=== PATIENT | male | born 1935 | race Caucasian/White ===

== ENCOUNTER 2023-07-12 09:56 | Emergency (ER) | payer OTHER, SELFPAY ==
[2023-07-12 10:07] VITALS: BP 94/77; PULSE 87; RESP 18; TEMP 37.7; O2SAT 97
--- NOTE | 2023-07-12 11:04 | ED.URI ---
HPI - URI/Sore Throat General Chief Complaint: Upper Respiratory Infection Stated Complaint: Cough/Ear Pain Time Seen by Provider: 07/12/23 10:50 Source: patient, RN notes reviewed and old records reviewed Mode of arrival: ambulatory Limitations: no limitations History of Present Illness HPI Narrative: 88 year old male who presents to [facility] accompanied by with complaints of cough which is productive of yellow mucous, forehead pain, chills, and left ear pain for the past 4 days. Patient reports that he has been taking NyQuil for his symptoms and also has been using Albuterol inhaler, patient does have history of asthma.Patient reports that he took a home COVID test on Monday which was negative MD elicited complaint: cough, rhinorrhea, nasal congestion and other (ear pain and chills with headache) Pertinent past history: asthma Onset (ago): day(s) (4) Pain scale (0-10): 5 Description of mucous: yellow Able to tolerate fluids by mouth: Yes Treatments prior to arrival: other (NyQuil and inhaler) Related Data Home Medications Medication Instructions Recorded Confirmed Eliquis 07/12/23 Singulair 07/12/23 albuterol sulfate 90 mcg/actuation inhalation 07/12/23 aerosol inhaler levetiracetam 500 mg tablet mg PO 07/12/23 lisinopril 07/12/23 omeprazole 07/12/23 Allergies Allergy/AdvReac Type Severity Reaction Status Date / Time No Known Allergies Allergy Unverified 07/12/23 10:15 Review of Systems Review of Systems: CONSTITUTIONAL: Reports malaise, chills, sweats, or fever. EYES: Denies visual changes, redness, or discharge. ENT: Reports rhinorrhea, congestion, sinus pain,left otalgia and no sore throat. CARDIOVASCULAR: Denies chest pain, palpitations, or edema. RESPIRATORY: Reports cough.? Denies dyspnea. GASTROINTESTINAL: Denies abdominal pain, nausea, vomiting, diarrhea SKIN: Denies rash or itching. MUSCULOSKELETAL: Denies myalgia. NEUROLOGIC:Positive frontal headache. All systems reviewed & are unremarkable except as noted in HPI and below PMFSH Past Medical History Medical History (Updated 07/14/23 @ 08:25 by Gillian Leroy NP) Asthma DVT (deep venous thrombosis) GERD (gastroesophageal reflux disease) Hypertension Seizure TIA (transient ischemic attack) Surgical History Surgical History (Updated 07/14/23 @ 08:15 by Gillian Leroy NP) H/O hernia repair History of cholecystectomy Social History Social History (Updated 07/14/23 @ 08:17 by Gillian Leroy NP) Smoking status: Never smoker Alcohol intake: current Alcohol use details: rare Substance use type: does not use Living arrangements: with family Gender identity (if verbalized by the patient): Male Comments At time of signature, agree with nursing past medical, surgical, social and family history. There is no relevant family history pertinent to the presenting complaint Exam Narrative: GENERAL: Well-appearing, well-nourished, and in no acute distress. HEAD: Normocephalic EYES: PERRLA, conjunctivae clear ENT: Nares clear, turbinates edematous and erythematous, yellow discharge. Mucous membranes moist.Left TM red,Right TM pearly esteban with dull light reflex; no tragal tenderness. Oropharynx erythematous without lesions. Tonsils not enlarged and without exudate, no drooling, no hoarseness, no trismus, uvula midline.post nasal drainage NECK: Supple. No lymphadenopathy CHEST: Scattered wheezes on auscultation, breath sounds equal. wheezing, no honchi, rales, or stridor. No respiratory distress, speaks in full sentences.productive cough,SAO2 97% on room air, no tachypnea or retractions noted HEART: Regular rate and rhythm. No murmur heard. SKIN: Warm, dry, no rash. NEURO: Alert and oriented x3. PSYCH: Normal mood and affect Course Course Emergency Course: Patient is aware of diagnosis, understands and agrees to treatment plan.? Anticipatory guidance given.? Pat
== END 2023-07-12 11:18 | disposition home or self-care (01) ==
PROVIDERS: Emergency Provider Registered Nurse; PCP Family Medicine
DX: H66.92 Otitis media, unspecified, left ear (principal); R05.1 Acute cough; Z20.822 Contact with and (suspected) exposure to COVID-19; J45.909 Unspecified asthma, uncomplicated; K21.9 Gastro-esophageal reflux disease without esophagitis; I10 Essential (primary) hypertension; Z86.73 Personal history of transient ischemic attack (TIA), and cerebral infarction without residual deficits; Z86.718 Personal history of other venous thrombosis and embolism
CPT/HCPCS: 87426; 87804; 99213; G0463